=== PATIENT | female | born 1975 | race Caucasian/White ===

== ENCOUNTER 2016-12-11 10:51 | Emergency (ER) | payer OTHER ==
[~2016-12-11] VITALS: Ht 157.5 cm; Wt 97.0 kg
[2016-12-11] MEDS ORDERED: OMEPRAZOLE20 M1 PO (10:56)
[2016-12-11] MEDS ORDERED: PENICILLN VK500 MG PO (11:08)
[2016-12-11] MEDS ORDERED: MOTRIN800 MG PO (11:08)
[2016-12-11 11:16] VITALS: BP 124/86
== END 2016-12-11 11:20 | disposition home or self-care (01) | DRG 153 ==
LOC: ED 10:51
DX: J02.9 Acute pharyngitis, unspecified (principal); R50.9 Fever, unspecified